=== PATIENT | female | born 1950 | race American Indian/Alaskan Native ===

== ENCOUNTER 2017-01-18 18:18 | Emergency (ER) | payer MEDICARE ==
[2017-01-18 22:10] LABS: Basophils % (Auto) 0.5 % (0.0-1.8); Eosinophils % (Auto) 3.3 % (0.0-4.3); Hemoglobin 13.2 gm/dl (10.1-14.3); Mean Corpuscular HGB Conc 32 % (30-34); Mean Corpuscular Hemoglobin 30 pg (28-32); Mean Corpuscular Volume 92 fl (79-97); Platelet Count 274 K/mm3 (140-440); Red Blood Count 4.45 M/mm3 (3.65-5.03); Red Cell Distribution Width 13.7 % (13.2-15.2)
[2017-01-18 22:15] LABS: Anion Gap 19 mmol/L; Blood Urea Nitrogen 10 mg/dL (7-17); Calcium 9.3 mg/dL (8.4-10.2); Carbon Dioxide 26 mmol/L (22-30); Chloride 99.8 mmol/L (98-107); Glucose 93 mg/dL (65-100); Potassium 3.9 mmol/L (3.6-5.0); Sodium 141 mmol/L (137-145)
[2017-01-18] MEDS ORDERED: TORADOL IM ONE (22:42)
[2017-01-18] MEDS ORDERED: ZESTRIL PO ONE (22:42)
[2017-01-18] MEDS ORDERED: NORCO 5/325 PO ONE (22:42)
--- NOTE | 2017-01-18 23:25 | Emergency Department Report ---
ED Back Pain/Injury HPI - General Chief Complaint: Dyspnea/Respdistress Stated Complaint: SHARP PAINS Time Seen by Provider: 01/18/17 22:20 Source: patient Limitations: No Limitations - History of Present Illness Initial Comments: 66-year-old female with a past medical history hypertension, GERD, previous back surgery presents to the hospital complains of right back pain for several days. Pain is at the right mid back, sharp, constant, worse with movement, palpation, and deep inspiration. Patient denies shortness of breath, weakness, numbness, calf tenderness or edema. Patient states she has been treated with muscle relaxants in the past. She took a long bus trip last . Patient presents with elevated blood pressure and states that she typically takes enalapril 10 mg at night - Related Data Previous Rx's Medication Instructions Recorded Last Taken Type HYDROcodone/APAP 5-325 [[place] 1 each PO Q6HR PRN #20 tablet 01/19/17 Unknown Rx 5/325] Allergies Allergy/AdvReac Type Severity Reaction Status Date / Time No Known Allergies Allergy Verified 01/18/17 19:30 ED Review of Systems ROS: Stated complaint: SHARP PAINS Other details as noted in HPI Comment: All other systems reviewed and negative Other: Constitutional: No fevers chills Eyes: No eye pain visual changes ENT: No ear pain or throat pain Neck: Denies pain Respiratory: Denies cough wheezing shortness of breath Cardiovascular: Denies chest pain, palpitations, syncope GI: Denies abdominal pain, nausea, vomiting, diarrhea : Denies dysuria Musculoskeletal: as per hpi Skin: Denies rash, lesions, erythema Neurologic: Denies headache, numbness, weakness Psychiatric: Denies suicidal ideation, hallucinations ED Past Medical Hx - Past Medical History Previous Medical History?: Yes Hx Hypertension: Yes Hx GERD: Yes Additional medical history: joint problrms - Surgical History Past Surgical History?: Yes Additional Surgical History: ,hysterectomy,back - Social History Smoking Status: Never Smoker Substance Use Type: None - Medications Home Medications: Home Medications Medication Instructions Recorded Confirmed Last Taken Type HYDROcodone/APAP 5-325 [[place] 1 each PO Q6HR PRN #20 tablet 01/19/17 Unknown Rx 5/325] ED Physical Exam - General Limitations: No Limitations - Other Other exam information: General: No limitations, patient is alert in no acute distress Head exam: Atraumatic, normocephalic Eyes exam: Normal appearance ENT: Moist mucous membrane, normal oropharynx Neck exam: Normal inspection, full range of motion Respiratory exam: Clear to auscultation bilateral, no wheezes, rales, crackles Cardiovascular: Normal rate and rhythm, normal heart sounds Abdomen: Soft, nondistended, and nontender, with normal bowel sounds, no rebound, or guarding Extremity: Full range of motion normal inspection no deformity, no calf tenderness or edema Back: Normal Inspection, full range of motion, tenderness to the upper lumbar right paraspinal muscle tenderness Neurologic: Alert, oriented x3, cranial nerves intact, no motor or sensory deficit Psychiatric: normal affect, normal mood Skin: Warm, dry, intact ED Course Vital Signs 01/18/17 01/18/17 01/18/17 19:40 22:28 23:18 Temperature 99.6 F Pulse Rate 88 75 74 Respiratory 20 16 Rate Blood Pressure 186/87 Blood Pressure 202/123 183/81 [Left] O2 Sat by Pulse 97 95 Oximetry 01/18/17 01/19/17 23:20 00:42 Temperature Pulse Rate 87 84 Respiratory 16 16 Rate Blood Pressure Blood Pressure 186/87 172/74 [Left] O2 Sat by Pulse 97 95 Oximetry - Reevaluation(s) Reevaluation #1: 01/18/17 23:29 Patient given enalapril 10, [place] and Toradol Reevaluation #2: 01/19/17 01:01 Patient's blood pressure and pain improved with treatment in the ED. She is requesting medication for reflex and provided Maalox and viscous lidocaine. She stable for discharge ED Medical Decision Making - Lab Data Result diagrams: 01/18/17 21:38 01/18/17 21:38 Lab Results 01/18/17 01/18/17 01/18/17 Range/Units 21:38 21:38 22:33 WBC 10.0 (4.5-11.0) K/mm3 RBC 4.45 (3.65-5.03) M/mm3 Hgb 13.2 (10.1-14.3) gm/dl Hct 41.0 (30.3-42.9) % MCV 92 (79-97) fl MCH 30 (28-32) pg MCHC 32 (30-34) % RDW 13.7 (13.2-15.2) % Plt Count 274 (140-440) K/mm3 Lymph % (Auto) 19.6 (13.4-35.0) % Mckenzie % (Auto) 7.6 H (0.0-7.3) % Eos % (Auto) 3.3 (0.0-4.3) % Baso % (Auto) 0.5 (0.0-1.8) % Lymph # 1.9 (1.2-5.4) K/mm3 Mckenzie # 0.8 (0.0-0.8) K/mm3 Eos # 0.3 (0.0-0.4) K/mm3 Baso # 0.1 (0.0-0.1) K/mm3 Seg Neutrophils % 69.0 (40.0-70.0) % Seg Neutrophils # 6.9 (1.8-7.7) K/mm3 D-Dimer 208.11 (0-234) ng/mlDDU Sodium 141 (137-145) mmol/L Potassium 3.9 (3.6-5.0) mmol/L Chloride 99.8 (98-107) mmol/L Carbon Dioxide 26 (22-30) mmol/L Anion Gap 19 mmol/L BUN 10 (7-17) mg/dL Creatinine 0.5 L (0.7-1.2) mg/dL Estimated GFR > 60 ml/min BUN/Creatinine Ratio 20.00 % Glucose 93 (65-100) mg/dL Calcium 9.3 (8.4-10.2) mg/dL Troponin T < 0.010 (0.00-0.029) ng/mL - EKG Data -: EKG Interpreted by Me (sinus 85 nonspecific T abnormalities) - Radiology Data Radiology results: image reviewed (chest x-ray PA and lateral: No acute findings ) - Medical Decision Making Chest pain workup was ordered based on triage and protocol. Patient had thoracic pain however, clinically she has lumbar paraspinal muscle tenderness is reproducible on palpation. No neurologic symptoms. D-dimer negative and patient denies shortness of breath or respiratory symptoms. She'll be discharged home with pain medication and follow-up with her doctor a [facility] - Differential Diagnosis muscle strain, PE, chest Critical Care Time: No Critical care attestation.: If time is entered above; I have spent that time in minutes in the direct care of this critically ill patient, excluding procedure time. ED Disposition Clinical Impression: Back strain, Uncontrolled hypertension, GERD (gastroesophageal reflux disease) Disposition: DISCHARGED TO HOME OR SELFCARE Is pt being admited?: No Does the pt Need Aspirin: No Condition: Stable Instructions: Hypertension (ED), Low Back Strain (ED) Additional Instructions: Take the medication as prescribed. Do not drive while taking this medication because it may cause drowsiness. It may also cause constipation take stool softeners as needed. Return symptoms worsen. Prescriptions: HYDROcodone/APAP 5-325 [[place] 5/325] 1 each PO Q6HR PRN #20 tablet PRN Reason: Pain Referrals: PRIMARY CARE, [Primary Care Provider] - 3-5 Days Time of Disposition: 01:04
[2017-01-19 00:42] VITALS: BP 172/74
[2017-01-19] MEDS ORDERED: ALUM-MAG HYDROX-SIMETH 200-200-20MG/5ML PO ONE (00:44)
[2017-01-19] MEDS ORDERED: LIDOCAINE VISCOUS 2% PO ONE (00:44)
--- NOTE | 2017-01-19 10:18 | XRay Report ---
ROUTINE CHEST, TWO VIEWS: HISTORY: Shortness of breath. There is poor inspiration. The trachea, heart, mediastinal contour, lung hooper and bony thorax are unremarkable. IMPRESSION: Unremarkable chest x-ray.
== END 2017-01-19 01:22 | disposition home or self-care (01) ==
LOC: ED 18:18
DX: S29.012A Strain of muscle and tendon of back wall of thorax, initial encounter (principal); I10 Essential (primary) hypertension; K21.9 Gastro-esophageal reflux disease without esophagitis; X58.XXXA Exposure to other specified factors, initial encounter; Y93.9 Activity, unspecified; Y99.9 Unspecified external cause status; Y92.9 Unspecified place or not applicable
CPT/HCPCS: 36415; 71020; 80048; 84484; 85025; 85379; 93005; 93010; 96372; 99284; J1885